=== PATIENT | female | born 1955 | race Caucasian/White ===

== ENCOUNTER 2022-06-13 09:49 | Outpatient (CLI) | payer MEDICARE, SELFPAY ==
--- NOTE | 2022-06-13 10:27 | XR_ITS ---
WS: [id number] XR lumbar spine f/e only [id number] REASON FOR EXAM: LBP W/SCIATICA FINDINGS: Mild biconcave compression deformities of L1-L5. The findings are relatively unchanged compared to e previous examination of 03/22/2016. Mild narrowing of the L5-S1 disc space. Facet joints demonstrate mild degenerative change L3-S1. No significant neutral listhesis. No significant abnormal vertebral body movement with flexion and extension. XR/XR lumbar spine f/e only [id number] IMPRESSION: Mild changes of degenerative spondylosis as above.
--- NOTE | 2022-06-13 10:27 | XR_ITS ---
WS: [id number] XR sacroiliac jts m 3V [id number] REASON FOR EXAM: LBP W/SCIATICA FINDINGS: No fracture or focal bone lesion. Sacroiliac joints are well defined with no bridging or fusion. No erosions. Thin sclerotic margins. Complex midline lower pelvic calcification. XR/XR sacroiliac jts m 3V [id number] IMPRESSION: Normal sacroiliac joints. Pelvic calcification most likely is uterine fibroid, less likely a bladder calc ulus. Calcification was present on lumbar spine examination of 03/22/2016.
== END 2022-06-13 09:50 | disposition home or self-care (01) ==
PROVIDERS: PCP Nurse Practitioner; Visit Provider Nurse Practitioner
DX: M54.41 Lumbago with sciatica, right side (principal)
CPT/HCPCS: 72120; 72202

== ENCOUNTER 2023-01-20 11:29 | Emergency (ER) | payer MEDICARE, MEDICAID, SELFPAY ==
[2023-01-20 11:36] VITALS: BP 192/104; PULSE 99; RESP 18; TEMP 36.6; O2SAT 99; BMI 16.2
--- NOTE | 2023-01-20 11:39 | XRR_ITS ---
PROCEDURE INFORMATION: Exam: XR Right Tibia and Fibula Exam date and time: 01/20/2023 11:44 AM Age: 67 years old Clinical indication: Injury or trauma; Other: Furniture fell on leg; Swelling (edema); Lower leg; Right TECHNIQUE: Imaging protocol: Radiologic exam of the right tibia and fibula. Views: 2 views. COMPARISON: No relevant prior studies available. FINDINGS: Bones/joints: Normal. Soft tissues: Unremarkable. XR/XR tibia fibula RT 2V [id number] IMPRESSION: No acute findings.
--- NOTE | 2023-01-20 11:40 | ED_ITS ---
HPI - General Adult General: Chief complaint: Extremity Injury, Lower Stated complaint: right leg injury Time Seen by Provider: 01/20/23 11:31 Source: patient Mode of arrival: ambulatory Limitations: no limitations History of Present Illness: 67-year-old female states she had a table fall onto her right lower leg 1 week ago. States she does have a contusion along with some pain she has been ambulating without difficulty states will get x-ray make sure she did not have any fracture. Denies any other injuries. Rates her pain a 2 out of 10 currently Associated symptoms: Deny chest pain, dyspnea, nausea, rash or vomiting Review of Systems Const: Denies: fever(s) or chills ENMT: Denies: throat pain or dental pain Card: Denies: chest pain Resp: Denies: dyspnea GI: Denies: abdominal pain, nausea, vomiting or diarrhea Musc: Reports: extremity pain; Denies: neck pain or back pain Skin/Breast: Denies: rash All/Imm: Denies: urticaria Physical Exam Const: COMMON NORMALS: no acute distress, patient oriented x3 and healthy appearing HENMT: COMMON NORMALS: normocephalic and atraumatic HEAD & SCALP: normocephalic and atraumatic Neck/C-Spine: COMMON NORMALS: full ROM and supple Chest: COMMONS NORMALS: normal inspection of the chest Resp: COMMON NORMALS: normal respiratory effort Cardio: COMMON NORMALS: regular rate and No murmurs present (Cardio) RATE: regular rate Extremity: COMMON NORMALS: full ROM NARRATIVE EXTREMITY EXAM: Contusion noted to right lower leg with some tenderness no obvious deformity patient is able to bear weight without difficulty Neuro: COMMON NORMALS: patient oriented x3, moves all extremities and no focal motor deficits Psych: COMMON NORMALS: mental status grossly normal, Normal thought process present and cooperative THOUGHT PROCESS: Normal thought process present Skin: COMMON NORMALS: no rashes or lesions noted and no wounds GENERAL SKIN EXAM: no rashes or lesions noted Course Vital Signs: Vital signs: Vital Signs Temperature 98 F 01/20/23 11:36 Pulse Rate 99 01/20/23 11:36 Respiratory Rate 18 01/20/23 11:36 Blood Pressure 192/104 01/20/23 11:36 Pulse Oximetry 99 01/20/23 11:36 Oxygen Delivery Me thod Room Air 09/16/23 11:36 MDM - General Adult Medical Decision Making Patient presents with a leg contusion x-ray shows no fracture patient is well- appearing here she is stable for discharge she is to follow-up with her PCP and return if worsening XR interpretation done by ED provider, pending radiology final review ED provider radiology interpretation(s): xr tib fib no acute fx Discharge Plan Discharge Patient Disposition: Home Clinical Impression: Contusion of leg, right Condition: Stable Prescriptions: No Action amlodipine 5 mg tablet 5 mg PO DAILY doxycycline hyclate 100 mg tablet 100 mg PO BID Rx Instructions: FOR 10 DAYS (RX FILLED 01/10/23) Discharge Orders: Discharge ED (Routine); Ordered 01/20/23 Ordered By: Sukhi Blum Referrals: Isabel Pedro FNP [Primary Care Provider] - Discharge Diet: Advance as tolerated Discharge Activity: Resume usual activity Patient Instructions: Contusion in Adults (ED) Coding Level of Care Code ED Wearing Apparel Assembler for Lalita Murphy
== END 2023-01-20 11:58 | disposition home or self-care (01) ==
PROVIDERS: Emergency Provider Emergency Medicine; PCP Nurse Practitioner
DX: S80.11XA Contusion of right lower leg, initial encounter (principal); W20.8XXA Other cause of strike by thrown, projected or falling object, initial encounter
CPT/HCPCS: 73590; 99283

== ENCOUNTER 2023-02-12 14:29 | Outpatient (CLI) | payer MEDICARE, MEDICAID, SELFPAY ==
--- NOTE | 2023-02-12 14:40 | MR_ITS ---
WS: [id number] MRI LUMBAR SPINE NONCONTRAST TECHNIQUE: Sagittal T1, T2 and STIR imaging. Axial T1 and T2 imaging. CLINICAL INFORMATION: ABNORMAL XRAY OF LSPINE COMPARISON: None. FINDINGS: Counting performed from the craniocervical junction. L5 is partially sacralized. Disc bulging worse a t L5-S1. Mild endplate Schmorl's node inferior endplate L3. No acute compression fractures. Mild sas programmer analyst sonya appearing biconcave compression deformities in the mid and upper thoracic spine at T3 and T4. L1-L2: Mild annular bulging. Mild facet arthropathy. Spinal canal and foramen are patent. L2-L3: Mild annular bulging. Mild facet arthropathy. Mild LEFT and no significant RIGHT foraminal guy rowing. L3-L4: Mild annular bulging with slight effacement of the ventral thecal sac. Mild facet arthropathy. Mild bilateral foraminal narrowing. L4-L5: Mild annular bulging with slight effacement of the ventral thecal sac. Slight narrowing of the subarticular recess bilaterally. Moderate facet arthropathy. Spinal canal and foramen are patent. L5-S1: LEFT paracentral disc protrusion impinges the LEFT S1 nerve root in the subarticular recess. R ecommend correlation LEFT S1 nerve root symptoms. L5 is partially sacralized. Mild to moderate facet arthropathy. Foramen are patent. Visualized pelvic bony structures: Normal. Paravertebral soft tissues: Normal. IMPRESSION: 1. Counting performed from the craniocervical junction. L5 is partially sacralized. 2. LEFT paracentral protrusion L5-S1 impinges the traversing LEFT S1 nerve root in the subarticular recess. 3. Correlation LEFT S1 nerve root symptoms. 4. Mild annular bulge L4-5 with narrowing of the subarticular recess bilaterally and slight contact of the traversing L5 nerve roots. 5. Mild annular bulging L2-L3 and L3-L4. 6. Otherwise mild foraminal narrowing described above.
== END 2023-02-12 14:30 | disposition home or self-care (01) ==
PROVIDERS: PCP Nurse Practitioner; Visit Provider Nurse Practitioner
DX: R93.7 Abnormal findings on diagnostic imaging of other parts of musculoskeletal system (principal); M51.36 Other intervertebral disc degeneration, lumbar region
CPT/HCPCS: 72148

== ENCOUNTER → 2025-04-14 11:20 | Outpatient (BNVA) | payer MEDICARE, SELFPAY | PROVIDERS: PCP Family Medicine; Referring Provider Nurse Practitioner; Visit Provider Internal Medicine Cardiovascular Disease | DX: R01.1 Cardiac murmur, unspecified (principal); I44.7 Left bundle-branch block, unspecified; I10 Essential (primary) hypertension; F17.200 Nicotine dependence, unspecified, uncomplicated; R94.31 Abnormal electrocardiogram [ECG] [EKG]; R07.9 Chest pain, unspecified | CPT/HCPCS: 93005; 99204 ==